=== PATIENT | male | born 1990 | race Caucasian/White ===

== ENCOUNTER → 2016-03-21 | Outpatient (CLI) | payer OTHER ==
[~2016-03-21] MED LIST: 'zyrtec10 MG PO; BENZONATATE100 M1 PO; DOXYCYCLINE100 M3 PO; DOXYCYCLINE100 MG PO; NKHM; PROTONIX40 MG PO; ZITHROMAX250 MG PO
[2016-03-22 14:06] LABS: LYME AB/TOTAL IMMUNOGLOBULINS <0.91 ISR (0.00-0.90)
== END | disposition home or self-care (01) ==
LOC: LAB 15:35
PROVIDERS: Internal Medicine Infectious Disease
DX: Z11.2 Encounter for screening for other bacterial diseases (principal); W57.XXXA Bitten or stung by nonvenomous insect and other nonvenomous arthropods, initial encounter

== ENCOUNTER 2021-03-18 12:38 | Emergency (ER) | payer OTHER ==
[~2021-03-18] VITALS: Ht 175.2 cm; Wt 83.9 kg
[2021-03-18 13:28] VITALS: BP 115/80
== END 2021-03-18 16:58 | disposition home or self-care (01) ==
LOC: ED 12:38
DX: B34.9 Viral infection, unspecified (principal); Z20.822 Contact with and (suspected) exposure to COVID-19; Z88.0 Allergy status to penicillin; Z79.899 Other long term (current) drug therapy